=== PATIENT | female | born 1990 | race Hispanic/Latino ===

== ENCOUNTER 2025-07-13 08:33 | Emergency (ER) | payer SELFPAY ==
[2025-07-13 09:03] LABS: Urine Culture Reflex Order NOT NEEDED; Urine Microscopic Reflex YN ORDER UMIC
[2025-07-13 09:11] LABS: Influenza A Ag Negative; Influenza B Ag Negative; SARS-CoV-2 Antigen Rapid Res Negative (Negative)
[2025-07-13 09:17] LABS: Absolute Lymphocytes (CBC) 1.5 K/uL (0.7-4.9); Hematocrit 38.5 % (36.0-45.0); Hemoglobin 13.2 g/dL (12.0-15.0); MCH 28.6 pg (27.0-35.0); MCHC 34.3 g/dL (32.0-36.0); MCV 83.5 fL (80-100); MPV 7.9 fL (7.6-11.3); Nucleated RBC Absolute Count 0.0 (0-0); Nucleated Red Blood Cells % 0.1 % (0-0); RBC Red Blood Cell Count 4.60 M/uL (3.86-4.86); White Blood Count 8.90 thou/uL (4.3-10.9)
[2025-07-13 09:34] LABS: Anion Gap 9.0 mEq/L (5.0-15.0); BUN Blood Urea Nitrogen 13.0 mg/dL (7-18); Glucose Level 89.0 mg/dL (74-106); Potassium 4.0 mEq/L (3.5-5.1)
--- NOTE | 2025-07-13 09:35 | RAD REPORT ---
EXAMINATION: ONE VIEW CHEST XR CLINICAL INDICATION: Female, 35 years old.,COUGH TECHNIQUE: Frontal chest projection is submitted. Examination is limited by patient positioning and t echnique. COMPARISON: No prior exam. FINDINGS: The lungs are well inflated and clear. No pneumothorax or sizable effusion. The heart is normal in s ize. Mediastinal contours are unremarkable. IMPRESSION: No acute intrathoracic abnormalities.
--- NOTE | 2025-07-13 09:56 | ER ---
Nurse's Notes [facility] Name: Ana Britt Age: 35 yrs Sex: Female : 1990 Arrival Date: 07/13/2025 Time: 08:33 Bed 13 Private MD: Diagnosis: UTI/ Urinary tract infection, site not specified Presentation: 07/13 08:52 Coronavirus screen: Client denies travel out of the [place] in the last 14 days. Ebola cm10 Screen: Patient denies travel to an Ebola-affected area in the 21 days before illness onset. Initial Sepsis Screen: Does the patient meet any 2 criteria? No. Patient's initial sepsis screen is negative. Does the patient have a suspected source of infection? No. Patient's initial sepsis screen is negative. Risk Assessment: Do you want to hurt yourself or someone else? Patient reports no desire to harm self or others. Onset of symptoms was June 2025. 08:52 Method Of Arrival: Ambulatory cm10 08:52 Acuity: ANTONIO 3 cm10 08:53 Chief complaint: Patient states: Urinary symptoms onset 1 month ago. Pt states that she cm10 was on Cipro 2 weeks ago and the symptoms returned. Pt also reports cough, sore throat, congestion X1 week. Triage Assessment: 08:54 General: Appears in no apparent distress. comfortable, Behavior is calm, cooperative, cm10 appropriate for age. Pain: Denies pain. Neuro: No deficits noted. Level of Consciousness is awake, alert, obeys commands, Oriented to person, place, time, situation, Appropriate for age. Respiratory: No deficits noted. Airway is patent Respiratory effort is even, unlabored, Respiratory pattern is regular, symmetrical. : Reports burning with urination, urinary frequency. Musculoskeletal: Range of motion: intact in all extremities. 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 - Infectious Disease History:: Denies. - Social history:: Smoking status: Patient denies any tobacco usage or history of. Screenin:[address] [facility] ED Fall Risk Assessment (Adult) History of falling in the last 3 months, cm10 including since admission No falls in past 3 months (0 pts) Confusion or Disorientation No (0 pts) Intoxicated or Sedated No (0 pts) Impaired Gait No (0 pts) Mobility Assist Device Used No (0 pt) Altered Elimination No (0 pt) Score/Fall Risk Level 0 - 2 = Low Risk Oriented to surroundings, Maintained a safe environment, Hourly rounding (assess needs \T\ fall precautionary measures) done. Abuse screen: Denies threats or abuse. Denies injuries from another. Nutritional screening: No deficits noted. Tuberculosis screening: No symptoms or risk factors identified. Assessment: 09:50 Reassessment: Patient appears in no apparent distress at this time. Patient and/or cm10 family updated on plan of care and expected duration. Pain level reassessed. Patient is alert, oriented x 3, equal unlabored respirations, skin warm/dry/pink. Vital Signs: 08:52 BP 132 / 87; Pulse 80; Resp 16; Temp 98.7(O); Pulse Ox 100% on R/A; Weight 78.47 kg; cm10 Height 5 ft. 2 in. ; Pain 0/10; 10:04 BP 111 / 85; Pulse 79; Resp 18; Pulse Ox 98% on R/A; cm10 08:52 Body Mass Index 31.64 (78.47 kg, 157.48 cm) cm10 08:52 Pain Scale: Adult cm10 ED Course: 08:36 Patient arrived in ED. rg4 08:36 Delon Whitlock FNP-C [facility]. dr5 08:36 Dixie Ward MD is Attending Physician. dr5 08:39 Ev Herrera, RN is Primary Nurse. cm10 08:50 Provided Education on: ER process and procedures. cm10 08:51 COVID-19 Ag + Flu A+B Ag Sent. cm10 08:51 Test, Urine Sent. cm10 08:51 UA Rfx Alin Cult if indicated Sent. cm10 08:53 Triage completed. cm10 08:54 Arm band placed on right wrist. Patient placed in an exam room, on a stretcher. cm10 09:10 BMP Sent. cm10 09:10 CBC with Diff Sent. cm10 09:10 Group A Streptococcus Rapid Sent. cm10 09:10 Initial lab(s) drawn, by wa, sent to lab. COVID swab sent to lab. Strep swab sent to 10 lab. Inserted saline lock: 20 gauge in right antecubital area, using aseptic technique. Blood collected. Flushed with 10 mL NS. 09:11 Patient has correct armband on for positive identification. Bed in low position. Call cm10 light in reach. Side rails up X 1. Pulse ox on. NIBP on. 09:21 Chest Single View XRAY In Process Unspecified. EDMS 10:13 No provider procedures requiring assistance completed. IV discontinued, intact, cm10 bleeding controlled, No redness/swelling at site. Pressure dressing applied. Administered Medications: No medications were administered Medication: 08:50 VIS not applicable for this client. cm10 Outcome: 09:55 Discharge ordered by . dr5 10:12 Discharged to home ambulatory, cm10 10:12 Condition: good 10:12 Discharge instructions given to patient, Instructed on discharge instructions, follow up and referral plans. medication usage, Demonstrated understanding of instructions, follow-up care, medications, Prescriptions given X 2, 10:13 Patient left the ED. cm10 Signatures: Dispatcher [employer] Lakisha Montejo4 Ev Herrera, RN RN cm10 Delon Whitlock, TEAR DOWN WORKER-C TEAR DOWN WORKER-Cdr5
--- NOTE | 2025-07-13 09:56 | EDPHYS ---
Physician Documentation [facility] Name: Ana Britt Age: 35 yrs Sex: Female : 1990 Arrival Date: 07/13/2025 Time: 08:33 Bed 13 Private MD: ED Physician Dixie Ward HPI: 07/13 08:49 This 35 yrs old Female presents to ER via Ambulatory with complaints of dr5 Urinary Problem, Flu Symptoms. 08:49 Onset: The symptoms/episode began/occurred 1 week(s) ago. Patient is a 32-year-old dr5 female with no past medical history coming in with urinary symptoms for the past month. Patient reports that she took Macrobid a month ago for urinary tract infection, took ciprofloxacin 2 weeks ago, and feels that she has another urinary tract infection coming for the last week. Patient also states that she has cough, congestion, subjective fevers at home. Patient reports that she lives in a fpc [facility] with her mother being sick. Patient also reports sore throat.. 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 - Infectious Disease History:: Denies. - Social history:: Smoking status: Patient denies any tobacco usage or history of. ROS: 08:50 Constitutional: as per hpi dr5 Exam: 08:50 Constitutional: This is a well developed, well nourished patient who is awake, alert, dr5 and in no acute distress. Head/Face: Normocephalic, atraumatic. Eyes: Pupils equal round and reactive to light, extra-ocular motions intact. Lids and lashes normal. Conjunctiva and sclera are non-icteric and not injected. Cornea within normal limits. Periorbital areas with no swelling, redness, or edema. ENT: Nares patent. No nasal discharge, no septal abnormalities noted. Tympanic membranes are normal and external auditory canals are clear. Oropharynx with no redness, swelling, or masses, exudates, or evidence of obstruction, uvula midline. Mucous membranes moist. Chest/axilla: Normal chest wall appearance and motion. Nontender with no deformity. No lesions are appreciated. Cardiovascular: Regular rate and rhythm with a normal S1 and S2. Normal PMI, no JVD. No pulse deficits. Respiratory: Lungs have equal breath sounds bilaterally, clear to auscultation. No rales, rhonchi or wheezes noted. No increased work of breathing, no retractions or nasal flaring. Abdomen/GI: Soft, non-tender, non-distended Back: No spinal tenderness. No costovertebral tenderness. Full range of motion. Skin: Warm, dry with normal turgor. Normal color with no rashes, no lesions, and no evidence of cellulitis. MS/ Extremity: Pulses equal, no cyanosis. Neurovascular intact. Full, normal range of motion. Neuro: Awake and alert, GCS 15, oriented to person, place, time, and situation. Cranial nerves II-XII grossly intact. Motor strength 5/5 in all extremities. Sensory grossly intact. Cerebellar exam normal. Normal gait. 08:50 Back: pain, is absent, ROM is normal, normal spinal alignment noted, CVA tenderness, is absent, Vital Signs: 08:52 BP 132 / 87; Pulse 80; Resp 16; Temp 98.7(O); Pulse Ox 100% on R/A; Weight 78.47 kg; cm10 Height 5 ft. 2 in. ; Pain 0/10; 10:04 BP 111 / 85; Pulse 79; Resp 18; Pulse Ox 98% on R/A; cm10 08:52 Body Mass Index 31.64 (78.47 kg, 157.48 cm) cm10 08:52 Pain Scale: Adult cm10 MDM: 08:36 Medical Screening Exam initiated dr5 08:54 Differential diagnosis:. dr5 09:08 Data reviewed: vital signs, nurses notes, lab test result(s), CBC, white blood cell dr5 count, hemoglobin, hematocrit, platelets, electrolytes, sodium, potassium, chloride, serum bicarbonate, BUN, creatinine, serum glucose, urinalysis, UPT: radiologic studies, plain films. Consideration of Admission/Observation Escalation of care including admission/observation considered. Escalation considered patient found to be . I considered the following discharge prescriptions or medication management in the emergency department Medications were administered in the Emergency Department. See MAR. 09:09 Independent interpretation of the following test(s) in the Emergency Department X-Ray: dr5 My interpretation is Independent of rotation of x-ray revealed no infiltrates concerning for pneumonia. . Care significantly affected by the following Social Determinants of Health: Poor access to healthcare and/or lack of insurance, Poor access to transportation, Inadequate housing, Problems related to employment. Counseling: I had a detailed discussion with the patient and/or guardian regarding the historical points, exam findings, and any diagnostic results supporting the discharge/admit diagnosis, the presence of at least one elevated blood pressure reading (>120/80) during this emergency department visit, lab results, radiology results, the need for outpatient follow up, for definitive care, a family practitioner, to return to the emergency department if symptoms worsen or persist or if there are any questions or concerns that arise at home. 09:19 Test considered but Not performed: CT: CT was considered for vague, intermittent back dr5 pain on right side but deferred due to patient not being in pain, no fever, and no blood in urine.. 10:38 Differential diagnosis: viral Infection, bacterial infection, URI, bronchitis, UTI. dr5 Response to treatment: the patient is now symptom free. Special discussion: I discussed with the patient/guardian in detail that at this point there is no indication for admission to the hospital. It is understood, however, that if the symptoms persist or worsen the patient needs to return immediately for re-evaluation. Based on the history and exam findings, there is no indication for further emergent testing or inpatient evaluation. I discussed with the patient/guardian the need to see the primary care provider for further evaluation of the symptoms. ED course: Patient does not have a primary care doctor yet. All labs printed and given to patient with x-ray results as well. Recommend patient follow-up with primary care doctor for further management. Will cover patient for urinary tract infection as well as possible yeast infection development. All questions answered. Strict ER precautions given. Patient is agreeable to plan.. 10:50 Differential diagnosis: viral Infection, bacterial infection, URI, bronchitis, UTI. dr5 07/13 08:41 Order name: UA Rfx Alin Cult if indicated; Complete Time: 09:07 dr5 07/13 08:41 Order name: Test, Urine; Complete Time: 09:03 dr5 07/13 08:41 Order name: COVID-19 Ag + Flu A+B Ag; Complete Time: 09:12 dr5 07/13 08:48 Order name: Group A Streptococcus Rapid; Complete Time: 09:35 dr5 07/13 08:48 Order name: CBC with Diff; Complete Time: 09:49 dr5 07/13 08:48 Order name: BMP; Complete Time: 09:35 dr5 07/13 09:37 Order name: Throat Culture EDLA 07/13 08:54 Order name: Chest Single View XRAY; Complete Time: 09:37 dr5 Administered Medications: No medications were administered Disposition Summary: 07/13/25 09:55 Discharge Ordered Notes: Location: Home dr5 Condition: Stable dr5 Diagnosis - UTI/ Urinary tract infection, site not specified dr5 Followup: dr5 - With: Emergency Department - When: As needed - Reason: Worsening of condition Followup: dr5 - With: Private Physician - When: 1 - 2 days - Reason: Recheck today's complaints, Continuance of care, Re-evaluation by your physician Discharge Instructions: - Discharge Summary Sheet dr5 - Urinary Tract Infection, Adult dr5 Forms: - Work release form dr5 - Medication Reconciliation Form dr5 - Antibiotic Education dr5 - Patient Portal Instructions dr5 - Leadership Thank You Letter dr5 Prescriptions: - Cephalexin 500 mg Oral Capsule - take 1 capsule ORAL route every 12 hours for 10 days; 20 capsule; Refills: 0, dr5 Product Selection Permitted - Fluconazole 150 mg Oral tablet - take 1 tablet ORAL route one time; 1 tablet; Refills: 0, Product Selection dr5 Permitted Signatures: Dispatcher [employer] Ev Aquino RN RN cm10 Delon Whitlock, TALITA-C SMELLER-Cdr5 Corrections: (The following items were deleted from the chart) 10:39 09:08 Data reviewed: vital signs, nurses notes, lab test result(s), CBC, white blood dr5 cell count, hemoglobin, hematocrit, platelets, electrolytes, sodium, potassium, chloride, serum bicarbonate, BUN, creatinine, serum glucose, urinalysis, UPT: radiologic studies, plain films, dr5
[2025-07-13 10:17] VITALS: TEMP 98.7
[2025-07-13 10:19] VITALS: BP 111/85; O2SAT 98
== END 2025-07-13 10:13 | disposition home or self-care (01) ==
LOC: ER 08:33
DX: N39.0 Urinary tract infection, site not specified (principal); R05.9 Cough, unspecified; Z11.52 Encounter for screening for COVID-19
CPT/HCPCS: 36415; 71045; 80048; 81001; 81025; 85025; 87070; 87428; 99284